=== PATIENT | female | born 1935 | race Caucasian/White ===

== ENCOUNTER 2017-02-04 02:59 | Inpatient (IN) | payer OTHER ==
[2017-02-04] VITALS (15 sets, daily range): BP systolic 112–168; BP diastolic 53–100
[~2017-02-04] VITALS: Ht 160 cm; Wt 73.3 kg
--- NOTE | ~2017-02-04 | HC ---
[facility] Tomás [place] [address] CONSULTATION Name: LASHAUN LADD Room #: 458-P ADM IN M.R.#: [id number] Admission: 02/04/17 Attend Phys: Sarath Solano MD Discharge: Date of : 33 Report #: [id number] THIS REPORT FOR: //name// CC: Clemente Solano DATE OF SERVICE: 02/04/2017 CONSULTATION REQUESTED BY: Dr. Steel. REASON FOR CONSULTATION: Possible pneumonia. HISTORY OF PRESENT ILLNESS: The patient is an 81-year-old white woman initially evaluated at [facility] with respiratory failure. She is found to have a right-sided pneumonia. She is transferred to [facility], currently in the intensive care unit on ventilator, alert and comfortable, friend at bedside. Most of the information on this patient is gathered from the review of records. PAST MEDICAL HISTORY: Sick sinus syndrome. Permanent pacemaker. Hypertension. Colon cancer resection. Diabetes mellitus. Hypothyroidism. DRUG ALLERGIES: None listed. MEDICATIONS: The patient is on carvedilol magnesium and potassium supplementation per protocol, Zosyn 3.375 grams IV every 6 hours and Levaquin 750 mg IV daily. She is on p.r.n. ondansetron. She has received some diltiazem for atrial fib. SOCIAL HISTORY: See H and P, old records. FAMILY HISTORY: See H and P, old records. REVIEW OF SYSTEMS: See H and P, old records. PHYSICAL EXAMINATION: GENERAL: Well-developed elderly woman, not toxic looking, ventilator dependent. VITAL SIGNS: Temperature 98.2, pulse 77, respirations 23, BP 126/57. HEENMT: Head normocephalic, atraumatic. Pupils reactive. Mouth unable to examine, orotracheal intubation. NECK: Supple. LUNGS: Few crackles, right lung. HEART: S1, S2. No gallop. ABDOMEN: Soft, no masses or megaly. EXTREMITIES: No clubbing, cyanosis. PELVIC AND RECTAL: Deferred. [facility] [address] [place] [address] CONSULTATION Name: LASHAUN LADD Room #: 458-P [facility] IN M.R.#: [id number] Admission: 02/04/17 Attend Phys: Sarath Solano MD Discharge: Date of : 34 Report #: [id number] NEUROLOGIC: Grossly within normal limits. LABORATORY DATA: A chest x-ray revealed right-sided pulmonary infiltrate compatible with pneumonia and permanent pacemaker. BUN 21, creatinine 1.3, glucose 198. NT-proBNP 3572. WBC 29,200, hemoglobin 14.1 g/dL, platelets 262,000. ABGs revealed pH 7.27, pCO2 47, pO2 78, bicarbonate 21 and lactate normal. These set of gases on FiO2 60%, 5 of PEEP and tidal volume of 550. MICROBIOLOGY DATA: Pending. ASSESSMENT: 1. Respiratory failure, ventilator dependent. 2. Right-sided pneumonia. 3. Congestive heart failure. 4. Status post permanent pacemaker. 5. Metabolic acidosis. SUGGESTIONS: Recommend urine for legionella and Streptococcus pneumoniae antigen. A swab for MRSA rapid screen. Continue combination of Zosyn and Levaquin. Streamline antibiotic regimen once microbiology available. Dr. Steel, thank you for requesting my suggestions in the care of your patient. <ELECTRONICALLY SIGNED> By: Raffaele Guardado MD 02/06/17 0628 1154 1538 Raffaele Guardado MD /nt
--- NOTE | ~2017-02-04 | 2DMMODE ---
[facility] [address] [place] [address] 2 D/M-MODE ECHOCARDIOGRAM Name: LASHAUN LADD Room #: 237-P ADM IN M.R.#: [id number] Admission: 02/04/17 Attend Phys: Ladonna Grant Discharge: Date of : 33 Date of Service: 02/04/17 1313 Report #: [id number] THIS REPORT FOR: //name// APPROVED REPORT Study performed: 02/04/2017 09:18:31 EXAM: Comprehensive 2D, Doppler, and color-flow Echocardiogram Patient Location: Bedside Room #: 237 Blood Pressure: 149/83 mmHg HR: 96 bpm Rhythm: Atrial Fibrillation Other Information Study Quality: Adequate Technically limited study due to limited mobility, lung interference. Patient in ICU on vent.. Indications Acute respiratory failure, Afib, pulmonary edema. Hx: Pacemaker, LA, DM, Afib, HTN, HLP 2D Dimensions RVDd: 37.88 mm LVEF(%): 29.39 (>50%) IVSd: 12.83 (7-11mm) LVOT Diam: 19.02 (18-24mm) LVDd: 45.27 mm PWd: 9.63 (7-11mm) Ascending Ao: 26.18 (22-36mm) LVDs: 39.07 (25-40mm) Aortic Root: 29.24 mm Ihlls's LVEF: 29.39 % Volumes Left Atrial Volume (Systole) Single Plane 4CH: 73.70 mL Single Plane 2CH: 90.60 mL LA ESV Index: 48.00 mL/m2 Aortic Valve AoV Peak Ashish.: 1.53 m/s AO Peak Gr.: 9.52 mmHg LVOT Max P.13 mmHg LVOT Max V: 0.73 m/s [facility] [address] [place] [address] 2 D/M-MODE ECHOCARDIOGRAM Name: WILBERTOLASHAUN Room #: 237- ADM IN M.R.#: [id number] Admission: 02/04/17 Attend Phys: Ladonna Grant Discharge: Date of : 34 Date of Service: 02/04/17 1313 Report #: [id number] Mitral Valve MV Decel. Time: 138.55 ms MV E Max Ashish.: 1.03 m/s Pulmonary Valve PV Peak Ashish.: 0.90 m/s PV Peak Gr.: 3.24 mmHg Tricuspid Valve TR Peak Ashish.: 2.25 m/s RAP Estimate: 10.00 mmHg TR Peak Gr.: 20.33 mmHg RVSP: 30.00 mmHg Left Ventricle The left ventricle is normal size. Prominent discordant septal motion, possibly from RV pacing. Mild septal hypertrophy. Left ventricular systolic function is moderately decreased. LVEF is 35%. This study is not technically sufficient to allow evaluation of the LV diastolic function due to atrial fibrillation. Right Ventricle The right ventricle is normal size. Right ventricle is mildly hypokinetic. Pacemaker lead is present in the right ventricle. Atria Left atrium is dilated. Right atrium is dilated. Aortic Valve Aortic valve is calcified. Mild aortic regurgitation. There is no aortic valvular stenosis. Mitral Valve Mitral valve leaflets are mildly calcified. Moderate mitral regurgitation. Tricuspid Valve The tricuspid valve is normal in structure. There is mild to moderate tricuspid regurgitation. The right atrial pressure is estimated at 10 mmHg. There is borderline mild pulmonary hypertension. Estimated PAP is 30mmHg. Pulmonic Valve Pulmonic valve is not well visualized. Great Vessels The aortic root is normal in size. The ascending aorta is normal in size. IVC is dilated and collapses >50% with inspiration. [facility] [address] [place] [address] 2 D/M-MODE ECHOCARDIOGRAM Name: LASHAUN LADD Room #: 237-P [facility] IN .R.#: [id number] Admission: 02/04/17 Attend Phys: Ladonna Grant Discharge: Date of : 33 Date of Service: 02/04/17 1313 Report #: [id number] Pericardium There is no pericardial effusion. <Conclusion> Left ventricular systolic function is moderately decreased. LVEF is 35%. Prominent discordant septal motion, possibly from RV pacing. Both atria are dilated. Aortic valve is calcified. Mild aortic regurgitation, no stenosis. Mitral valve leaflets are mildly calcified. Moderate mitral regurgitation. Estimated PAP is 30mmHg. There is no pericardial effusion. Pacing and/or ICD wires in right heart <ELECTRONICALLY SIGNED> By: Victor M Topete MD, FACC 02/04/171312 12 12 Victor M Topete MD, FAC /INF
--- NOTE | ~2017-02-04 | EKG ---
[address] [address] ELECTROCARDIOGRAM REPORT Name: LASHAUN LADD Room #: 251- ADM IN M.R.#: [id number] Admission: 02/04/17 Attend Phys: Sarath Solano MD Discharge: Date of : 34 Report #: [id number] THIS REPORT FOR: //name// [facility] Test Date: 2017-02-10 Test Time: 07:53:15 Pat Name: LASHAUN LADD Department: Room: 251 Gender: F [employer] Department Chair: meron : 1935 Requested By: Sarath Solano Order Number: [id number] MD: Luis Guardado Measurements Intervals [place] Rate: 112 P: 0 MI: 175 QRS: -9 QRSD: 153 T: 144 QT: 393 QTc: 537 Interpretive Statements Atrial fibrillation Left bundle branch block Compared to ECG 02/04/2017 06:42:31 Atrial premature complex(es) now present Atrial fibrillation no longer present Electronically Signed On 02-10-2017 13:25:40 CDT by Luis Guardado [email or web address] <ELECTRONICALLY SIGNED> By: Luis Guardado MD 02/10/17 1325 0753 0753 Luis Guardado MD /EPI
--- NOTE | ~2017-02-04 | EKG ---
[address] [place] [address] ELECTROCARDIOGRAM REPORT Name: WILBERTOLASHAUN Room #: 237-P ADM IN M.R.#: [id number] Admission: 02/04/17 Attend Phys: Sarath Solano MD Discharge: Date of : 34 Report #: [id number] THIS REPORT FOR: //name// [facility] Test Date: 2017-02-04 Test Time: 06:42:31 Pat Name: LASHAUN LADD Department: Room: 237 P Gender: F It Support Engineer: meron : 1935 Requested By: Yenifer Faye Order Number: [id number] MD: Victor M Topete Measurements Intervals [place] Rate: 95 P: SD: QRS: -4 QRSD: 152 T: 136 QT: 411 QTc: 517 Interpretive Statements Atrial fibrillation Left bundle branch block Compared to ECG 07/31/2005 07:31:59 Left bundle-branch block now present atrial fibrillation has replaced sinus rhythm Electronically Signed On 02-04-2017 8:37:32 CDT by Victor M Topete [email or web address] <ELECTRONICALLY SIGNED> By: Victor M Topete MD, [facility] 02/04/17 0837 0642 [id number] Victor M Topete MD, [facility] /EPI
--- NOTE | ~2017-02-04 | HC ---
[facility] [address] [place] [address] CONSULTATION Name: LASHAUN LADD Room #: 212-P [facility] IN M.R.#: [id number] Admission: 02/04/17 Attend Phys: Sarath Solano MD Discharge: 02/14/17 Date of : 34 Report #: [id number] THIS REPORT FOR: //name// CC: Clemente Solano DATE OF SERVICE: 02/04/2017 REFERRING PROVIDER: KIMBERLY Mosquera REASON FOR CONSULTATION: Respiratory failure. CHIEF COMPLAINT: Shortness of breath. HISTORY OF PRESENT ILLNESS: Our group was asked to see the patient in consultation while hospitalized at [facility], currently in ICU, on mechanical ventilatory support. She is apparently presented to [facility] in respiratory distress, failed BiPAP therapy. A chest radiograph suggested pulmonary edema for which she was given Lasix and she was also intubated and transferred here for further management. A chest radiograph here showed diffused right lung infiltrate and elevated white blood cell count. Currently, she is having minimal secretions from the airway. She is awake and alert, but still needing a support from mechanical ventilator, unable to get much further history from the patient. ALLERGIES: DILTIAZEM and METOPROLOL. PAST MEDICAL HISTORY: 1. History of sick sinus syndrome, status post pacemaker placement. 2. Hypertension. 3. Hyperlipidemia. 4. History of colon cancer, status post resection. 5. Diabetes mellitus type 2. 6. Hypothyroidism. CURRENT MEDICATIONS: 1. Amlodipine 10 mg daily. 2. Atenolol 25 mg daily. 3. Keflex 250 t.i.d. 4. Lasix 40 mg. 5. Aspirin 81 mg daily. 6. Metformin 1000 mg twice daily. 7. Imdur 30 mg daily. 8. 0.05 daily. 9. Clonidine 0.1 daily. [facility] [address] [place] [address] CONSULTATION Name: LASHAUN LADD Room #: 212-P DIS IN [facility]#: [id number] Admission: 02/04/17 Attend Phys: Sarath Solano MD Discharge: 02/14/17 Date of : 34 Report #: [id number] SOCIAL HISTORY: Unobtainable at present. FAMILY HISTORY: Unobtainable at present. REVIEW OF SYSTEMS: with yes/no questions. The patient denies any headache, nausea, vomiting, chest pain, abdominal pain, dysuria, or extremity pain, notes difficulty only with airway discomfort due to endotracheal tube. PHYSICAL EXAMINATION: VITAL SIGNS: Afebrile, pulse 80s, respiratory rate 20, blood pressure 149/83, oxygen saturation 98% on assist control with FiO2 60%. GENERAL: This is an elderly woman, in no distress, awake, following commands. ENT: Endotracheal tube in place. NECK: Supple, no lymphadenopathy. LUNGS: Some coarse right greater than left inspiratory and expiratory rhonchi. HEART: Irregular and tachycardic. No murmurs. ABDOMEN: Soft, nontender, no masses, no hepatosplenomegaly. EXTREMITIES: Without any significant edema. They are warm with 2+ pulses. NEUROLOGIC: The patient is awake and following all commands. LABORATORY DATA: White blood cell count 29,000, hemoglobin 14, hematocrit 45, and platelet count 266. Initial arterial blood gas on assist control, tidal volume 550, FiO2 60%, rate of 14, pH 7.28, pCO2 of 48, pO2 of 79, and bicarbonate 22. Sodium 144, potassium 3.6, chloride 107, bicarbonate 24, BUN 21, creatinine 1.3, and glucose 215. ProBNP was 3572. TSH was 9.5. Chest x-ray as described. IMPRESSION: 1. Right lung infiltrates, consistent with pneumonia with question possibility of aspiration. 2. Pulmonary edema. 3. Atrial fibrillation with rapid ventricular response. 4. Acute hypoxemic respiratory failure. 5. Hypothyroidism. 6. Hyperglycemia. SUGGESTIONS: 1. Attempt to wean ventilator as possibly able today with given her diuresis. 2. Infectious disease consultation. 3. Add Zosyn and Levaquin for now. 4. Bronchodilators. 5. P.r.n. sedation while the patient be more alert, see if we can wean from mechanical ventilatory support. 6. Cardiology consultation. 7. Follow up arterial blood gas. 8. Additional recommendations to follow. [facility] [address] [place] [address] CONSULTATION Name: LASHAUN LADD Room #: 212-P DIS IN M.R.#: [id number] Admission: 02/04/17 Attend Phys: Sarath Solano MD Discharge: 02/14/17 Date of : 34 Report #: [id number] Thank you for requesting our suggestions. <ELECTRONICALLY SIGNED> By: Herrera Steel MD 02/15/17 1254 0750 1434 Herrera Steel MD /nt
[~2017-02-04 02:59] MED LIST: ASPIR 8181 MG PO; CLONIDINE0.1 PO; IMDUR 30 MG TAB30 M1 PO; K-DUR 20 MEQ T20 MEQ PO; KEFLEX250 MG PO; LASIX 40 MG TAB40 M2 PO; LEVOTHYROXINE0.05 MG PO; METFORMIN HCL500 MG PO; NORVASC10 MG PO; TENORMIN25 MG PO
[2017-02-04 04:31] LABS: ABG SAMPLE TYPE ARTERIAL; BE(vivo) -5.3 mmol/L (-2 to +3); HCO3 21.7 mmol/L (22.0-26.0); LACTATE 1.94 mmol/L (0.5-2.0); O2(CT) 19.4 mL/dL (15.0-23.0); PCO2 47.6 mmHg (35.0-45.0); PO2 78.7 mmHg (80.0-100.0); STICK SITE L.RADIAL; TIDAL VOLUME 550 ml; pH 7.277 (7.360-7.450); tCO2 23.2 mmol/L (24.0-30.0)
[2017-02-04 04:44] LABS: HEMATOCRIT 45.2 % (37.0-47.0); HEMOGLOBIN 14.1 gm/dL (12.0-15.0); MCHC 31.1 g/dL (28.0-37.0); MCV 83.3 fL (80.0-100.0); RBC 5.42 mil/uL (4.20-5.00); RDW 16.6 % (10.5-14.5); WBC 29.2 thou/uL (4.0-11.0)
[2017-02-04 04:53] LABS: CALCIUM 9.3 mg/dL (8.5-10.1); CREATININE 1.3 mg/dL (0.6-1.0); POTASSIUM 3.6 mmol/L (3.5-5.1)
[2017-02-04 05:05] LABS: ALBUMIN 3.5 g/dL (3.4-5.0); TOTAL BILIRUBIN 0.6 mg/dL (<0.1-1.0); TOTAL PROTEIN 7.8 g/dL (6.4-8.2); TROPONIN-I 0.08 ng/mL (<0.04-0.07)
[2017-02-05] VITALS (16 sets, daily range): BP systolic 108–151; BP diastolic 56–117
[2017-02-05 04:25] LABS: HEMATOCRIT 35.8 % (37.0-47.0); MCH 26.4 pg (26.0-34.0); MCHC 32.1 g/dL (28.0-37.0); MCV 82.4 fL (80.0-100.0); RBC 4.35 mil/uL (4.20-5.00); RDW 16.5 % (10.5-14.5)
[2017-02-05 04:28] LABS: ALBUMIN 2.7 g/dL (3.4-5.0); CALCIUM 8.5 mg/dL (8.5-10.1); CREATININE 1.4 mg/dL (0.6-1.0); POTASSIUM 3.1 mmol/L (3.5-5.1); TOTAL PROTEIN 6.6 g/dL (6.4-8.2)
[2017-02-05 04:36] LABS: HEMOGLOBIN 11.5 gm/dL (12.0-15.0)
[2017-02-05 05:21] LABS: ABG SAMPLE TYPE ARTERIAL; BE(vivo) 2.7 mmol/L (-2 to +3); HCO3 25.9 mmol/L (22.0-26.0); LACTATE 1.33 mmol/L (0.5-2.0); O2(CT) 16.7 mL/dL (15.0-23.0); O2Hb 97.3 % (92.0-98.0); PO2 122.3 mmHg (80.0-100.0); pH 7.487 (7.360-7.450); sO2 98.7 % (92.0-98.0)
[2017-02-05 05:22] LABS: STICK SITE R.RADIAL; TIDAL VOLUME 500 ml
[2017-02-05 08:19] LABS: MAGNESIUM 1.9 mg/dL (1.8-2.4)
[2017-02-06 04:17] VITALS: BP 155/85
[2017-02-06 07:25] VITALS: BP 148/83
[2017-02-06 11:23] VITALS: BP 151/75
[2017-02-06 15:38] VITALS: BP 134/71
[2017-02-06 20:12] VITALS: BP 117/73
[2017-02-07 04:07] VITALS: BP 120/61
[2017-02-07 06:05] LABS: HEMATOCRIT 34.5 % (37.0-47.0); MCH 26.3 pg (26.0-34.0); MCHC 31.9 g/dL (28.0-37.0); MCV 82.4 fL (80.0-100.0); RBC 4.19 mil/uL (4.20-5.00); RDW 16.1 % (10.5-14.5); WBC 11.4 thou/uL (4.0-11.0)
[2017-02-07 06:15] LABS: CREATININE 1.4 mg/dL (0.6-1.0); POTASSIUM 3.1 mmol/L (3.5-5.1)
[2017-02-07 08:15] VITALS: BP 128/68
[2017-02-07 11:05] VITALS: BP 90/51
[2017-02-07 14:13] VITALS: BP 118/70
[2017-02-07 16:10] VITALS: BP 111/78
[2017-02-07 19:05] VITALS: BP 111/78
[2017-02-08 05:34] VITALS: BP 143/82
[2017-02-08 07:00] VITALS: BP 147/86
[2017-02-08 11:05] VITALS: BP 136/91
[2017-02-08 16:25] VITALS: BP 129/90
[2017-02-08 19:59] VITALS: BP 134/76
[2017-02-09 03:50] VITALS: BP 154/72
[2017-02-09 07:05] VITALS: BP 149/95
[2017-02-09 11:05] VITALS: BP 125/67
[2017-02-09 15:00] VITALS: BP 131/62
[2017-02-09 19:36] VITALS: BP 132/69
[2017-02-10] VITALS (41 sets, daily range): BP systolic 112–183; BP diastolic 61–101
[2017-02-10 07:31] LABS: HEMATOCRIT 44.3 % (37.0-47.0); HEMOGLOBIN 14.2 gm/dL (12.0-15.0); MCH 26.6 pg (26.0-34.0); MCHC 32.2 g/dL (28.0-37.0); MCV 82.6 fL (80.0-100.0); RBC 5.36 mil/uL (4.20-5.00); RDW 16.4 % (10.5-14.5); WBC 19.1 thou/uL (4.0-11.0)
[2017-02-10 07:40] LABS: ANION GAP 12 mmol/L (7-16); BUN 32 mg/dL (7-18); CALCIUM 9.2 mg/dL (8.5-10.1); CHLORIDE 105 mmol/L (98-107); CO2 26 mmol/L (21-32); CREATININE 1.4 mg/dL (0.6-1.0); GLUCOSE 306 mg/dL (74-106); POTASSIUM 4.3 mmol/L (3.5-5.1); SODIUM 143 mmol/L (136-145)
[2017-02-10 07:48] LABS: TROPONIN-I < 0.04 ng/mL (<0.04-0.07)
[2017-02-11] VITALS (16 sets, daily range): BP systolic 90–160; BP diastolic 56–110
[2017-02-11 05:22] LABS: HEMATOCRIT 38.2 % (37.0-47.0); HEMOGLOBIN 12.4 gm/dL (12.0-15.0); MCH 26.5 pg (26.0-34.0); MCHC 32.5 g/dL (28.0-37.0); MCV 81.4 fL (80.0-100.0); RBC 4.7 mil/uL (4.20-5.00); RDW 16.5 % (10.5-14.5)
[2017-02-11 05:36] LABS: CALCIUM 8.9 mg/dL (8.5-10.1); CREATININE 1.1 mg/dL (0.6-1.0)
[2017-02-11 05:42] LABS: POTASSIUM 2.9 mmol/L (3.5-5.1)
[2017-02-11 14:59] LABS: ABG SAMPLE TYPE ARTERIAL; BE(vivo) 1.2 mmol/L (-2 to +3); HCO3 24.8 mmol/L (22.0-26.0); LACTATE 1.82 mmol/L (0.5-2.0); O2Hb 96.1 % (92.0-98.0); PCO2 36.4 mmHg (35.0-45.0); PO2 93.4 mmHg (80.0-100.0); pH 7.452 (7.360-7.450); sO2 97.5 % (92.0-98.0)
[2017-02-11 16:01] LABS: ABG SAMPLE TYPE ARTERIAL; BE(vivo) 0.5 mmol/L (-2 to +3); HCO3 25.3 mmol/L (22.0-26.0); LACTATE 2.61 mmol/L (0.5-2.0); O2(CT) 21.2 mL/dL (15.0-23.0); O2Hb 98.9 % (92.0-98.0); PCO2 41.3 mmHg (35.0-45.0); PO2 275.8 mmHg (80.0-100.0); pH 7.405 (7.360-7.450); sO2 99.6 % (92.0-98.0); tCO2 26.6 mmol/L (24.0-30.0)
[2017-02-11 16:27] LABS: ABG COMMENT BIPAP
[2017-02-12 04:33] VITALS: BP 139/81
[2017-02-12 07:20] VITALS: BP 122/55
[2017-02-12] MEDS ORDERED: DUONEB 2.5-0.5 M3 ML INH (10:38)
[2017-02-12] MEDS ORDERED: ELIQUIS5 MG PO (10:38)
[2017-02-12] MEDS ORDERED: HUMALOG100 UNIT/1 SUBQ (10:39)
[2017-02-12] MEDS ORDERED: COZAAR 50 MG TA50 M1 PO (10:39)
[2017-02-12] MEDS ORDERED: COLACE 100 MG100 MG PO (10:40)
[2017-02-12] MEDS ORDERED: MIRALAX17 GM PO (10:40)
[2017-02-12] MEDS ORDERED: MAGNESIUM OXID400 MG PO (10:41)
[2017-02-12] MEDS ORDERED: CARDIZEM CD 18180 M3 PO (10:41)
[2017-02-12] MEDS ORDERED: METOPROLOL SUCC50 MG PO (10:41)
[2017-02-12 11:10] VITALS: BP 130/50
[2017-02-12 11:15] VITALS: BP 125/55
[2017-02-12 16:50] VITALS: BP 126/45
[2017-02-12 19:28] VITALS: BP 113/61
[2017-02-13 04:07] VITALS: BP 118/63
[2017-02-13 05:05] LABS: HEMATOCRIT 40.7 % (37.0-47.0); HEMOGLOBIN 13.2 gm/dL (12.0-15.0); MCH 26.5 pg (26.0-34.0); MCHC 32.4 g/dL (28.0-37.0); MCV 81.7 fL (80.0-100.0); RBC 4.98 mil/uL (4.20-5.00); RDW 15.8 % (10.5-14.5); WBC 14.4 thou/uL (4.0-11.0)
[2017-02-13 05:15] LABS: CALCIUM 9.2 mg/dL (8.5-10.1); CREATININE 1.3 mg/dL (0.6-1.0); MAGNESIUM 1.9 mg/dL (1.8-2.4); POTASSIUM 3.4 mmol/L (3.5-5.1)
[2017-02-13 07:27] VITALS: BP 121/56
[2017-02-13 11:19] VITALS: BP 111/53
[2017-02-13 15:30] VITALS: BP 115/67
[2017-02-14 04:57] VITALS: BP 127/63
[2017-02-14 05:35] LABS: HEMATOCRIT 39.9 % (37.0-47.0); HEMOGLOBIN 12.8 gm/dL (12.0-15.0); MCH 26.3 pg (26.0-34.0); MCHC 32.1 g/dL (28.0-37.0); MCV 82.1 fL (80.0-100.0); RBC 4.86 mil/uL (4.20-5.00); RDW 15.7 % (10.5-14.5); WBC 12.6 thou/uL (4.0-11.0)
[2017-02-14 05:38] LABS: ABG SAMPLE TYPE ARTERIAL; BE(vivo) 7.3 mmol/L (-2 to +3); HCO3 31.4 mmol/L (22.0-26.0); LACTATE 1.24 mmol/L (0.5-2.0); O2(CT) 18.4 mL/dL (15.0-23.0); O2Hb 95.5 % (92.0-98.0); PCO2 42.5 mmHg (35.0-45.0); PO2 80.8 mmHg (80.0-100.0); pH 7.487 (7.360-7.450); sO2 96.6 % (92.0-98.0); tCO2 32.7 mmol/L (24.0-30.0)
[2017-02-14 05:39] LABS: STICK SITE RRA
[2017-02-14 05:52] LABS: ALBUMIN 2.9 g/dL (3.4-5.0); CALCIUM 8.9 mg/dL (8.5-10.1); CREATININE 1.3 mg/dL (0.6-1.0); PHOSPHORUS 4.4 mg/dL (2.5-4.9); POTASSIUM 3.2 mmol/L (3.5-5.1)
[2017-02-14 07:04] VITALS: BP 133/82
== END 2017-02-14 12:55 | DRG 208 ==
LOC: ICU 02:59 → 4W 04:10 → ICU 04:10 → 4W 02-05 16:26 → ICU 02-10 08:28 → 2N 02-11 14:55
PROVIDERS: Family Medicine; Hospitalist; Internal Medicine; Internal Medicine Pulmonary Disease; Nurse Practitioner; Nurse Practitioner Adult Health; Nurse Practitioner Family
PROC: 5A1945Z Respiratory Ventilation, 24-96 Consecutive Hours (ICD-10-PCS; principal; 2017-02-04)
PROC: B548ZZA Ultrasonography of Superior Vena Cava, Guidance (ICD-10-PCS; 2017-02-04)
PROC: 02HV33Z Insertion of Infusion Device into Superior Vena Cava, Percutaneous Approach (ICD-10-PCS; 2017-02-04)
PROC: 5A09357 Assistance with Respiratory Ventilation, Less than 24 Consecutive Hours, Continuous Positive Airway Pressure (ICD-10-PCS; 2017-02-10)
DX: J96.21 Acute and chronic respiratory failure with hypoxia (principal); J18.9 Pneumonia, unspecified organism; I50.23 Acute on chronic systolic (congestive) heart failure; E87.2 Acidosis; I42.9 Cardiomyopathy, unspecified; Z99.11 Dependence on respirator [ventilator] status; I11.0 Hypertensive heart disease with heart failure; I49.5 Sick sinus syndrome; E78.5 Hyperlipidemia, unspecified; E03.9 Hypothyroidism, unspecified; E11.65 Type 2 diabetes mellitus with hyperglycemia; Z96.89 Presence of other specified functional implants; I48.0 Paroxysmal atrial fibrillation; D72.829 Elevated white blood cell count, unspecified; I34.0 Nonrheumatic mitral (valve) insufficiency; E87.6 Hypokalemia; E83.42 Hypomagnesemia; Z85.038 Personal history of other malignant neoplasm of large intestine; Z88.8 Allergy status to other drugs, medicaments and biological substances; Z90.710 Acquired absence of both cervix and uterus; I25.2 Old myocardial infarction; Z79.82 Long term (current) use of aspirin; Z79.899 Other long term (current) drug therapy; Z90.49 Acquired absence of other specified parts of digestive tract
CPT/HCPCS: 10045; 10078; 10081; 27000